=== PATIENT | female | born 2005 | race Caucasian/White ===

== ENCOUNTER 2023-11-14 13:27 | Emergency (ER) | payer BC ==
[~2023-11-14 13:27] MED LIST: Iopamidol-370 76% 500 ML MDV (1 ML CHARGE) ONE
[2023-11-14] MEDS ORDERED: Ketorolac Tromethamine 30 MG (1 mL) VIAL ONE (13:50)
[2023-11-14 14:22] LABS: #Basophils 0.08 10x3/uL (0.0-0.2); %Basophils 0.7 % (0.0-1.0); %Eosinophils 4.7 % (0.0-10.0); %Lymphocytes 21.4 % (28.0-48.0); %Monocytes 6.5 % (0.0-4.0); %Neutrophils 66.1 % (31.0-61.0); Hematocrit 41.9 % (36.0-47.0); Hemoglobin 14.2 g/dL (12.0-16.0); Mean Corpuscular HGB CONC 33.9 g/dL (32.0-36.0); Mean Corpuscular Hemoglobin 31.7 pg (25.0-35.0); Mean Corpuscular Volume 93.5 fL (78.0-98.0); Mean Platelet Volume 9.8 fL (7.4-10.4); Platelet Count 306 10x3/uL (130-400); RBC Distribution Width 11.2 % (11.5-14.5); Red Blood Cell (RBC) Count 4.48 mill/uL (4.00-5.20)
[2023-11-14 14:37] LABS: BHCG - Serum Negative (NEGATIVE); Pregs Control Background? CLEAR/WHITE (CLR/WHITE); Pregs Control Bar Appear? YES (CONTROL BAR)
[2023-11-14 14:47] LABS: ALT (SGPT) 56 U/L (8-55); AST (SGOT) 28 U/L (5-34); Albumin 3.8 g/dL (3.5-5.0); Alkaline Phosphatase 66 U/L (40-100); Anion Gap 12 mmol/L (10-20); BUN (Urea Nitrogen) 11 mg/dL (7.0-18.7); Bilirubin, Total 0.6 mg/dL (0.2-1.2); Calc. Creatinine Clearance 0 mL/min (70-130); Calcium 9.1 mg/dL (7.8-10.44); Carbon Dioxide 22 mmol/L (22-29); Chloride 110 mmol/L (98-107); Estimated GFR 110; Globulin 3.1 g/dL (2.4-3.5); Glucose 140 mg/dL (70-105); Lipase 21 U/L (8-78); Potassium 3.4 mmol/L (3.5-5.1); Protein, Total 6.9 g/dL (6.0-8.3); Sodium 141 mmol/L (136-145)
[2023-11-14] MEDS ORDERED: Ondansetron PF 4 MG/2 ML Vial ONE (14:49)
[2023-11-14 17:06] LABS: Bilirubin Negative (Negative); Blood, Urine 2+ (Negative); CAUTI Indications for Culture Dysuria,urgency,freq; Clarity Clear (Clear); Glucose, Urine (Dipstick) Normal (Negative); Ketone, Urine Negative (Negative); Leukocyte Negative Leu/uL (Negative); Nitrite 2+ (Negative); Protein, Urine (Dipstick) Negative (Neg-Trace); RBC/HPF 21-50 HPF (0-3); Urobilinogen Normal mg/dL (Less than 2)
[2023-11-14 17:15] LABS: Bacteria/HPF 3+ HPF (None Seen); Specific Gravity, Urine 1.055 (1.002-1.036); Yeast-Budding 1+ HPF (None Seen)
[2023-11-14 17:16] LABS: Urine Culture Reflex Yes Yes
== END 2023-11-14 18:19 | disposition home or self-care (01) ==
LOC: ERS 13:27
DX: N13.2 Hydronephrosis with renal and ureteral calculous obstruction (principal); N39.0 Urinary tract infection, site not specified
CPT/HCPCS: 36415; 74177; 80053; 81001; 83690; 84703; 85025; 87077; 87086; 96361; 96374; 96375; J1885; J2405; Q9967